=== PATIENT | female | born 1940 ===

== ENCOUNTER 2016-07-23 14:00 | Emergency (ER) | payer MEDICARE ==
[2016-07-23 14:41] VITALS: BP 171/81
--- NOTE | 2016-07-23 15:00 | UC ---
Throat Pain/Nasal James HPI - HPI Summary HPI Summary: 3-4 days ago started feeling like R ear was full, congested, then throat started hurting and has been getting worse. R>L. Denies fever, nasal congestion , or cough. Was around teenaged granddaughter 1 week ago who developed "tonsillitis." - History of Current Complaint Chief Complaint: UCRespiratory Stated Complaint: SORE THROAT,RT EAR PAIN Time Seen by Provider: 07/23/16 14:42 Hx Obtained From: Patient ?: No Onset/Duration: Gradual Onset, Lasting Days Severity: Moderate Cough: None Associated Signs & Symptoms: Negative: Hoarseness, Sinus Discomfort, Fever, Vomiting, Rash - Allergies/Home Medications Allergies/Adverse Reactions: Allergies Allergy/AdvReac Type Severity Reaction Status Date / Time No Known Allergies Allergy Verified 07/23/16 14:41 Home Medications: Home Medications Aspirin [Kathryn Aspirin] 325 mg PO 07/23/16 [History] PMH/Surg Hx/FS Hx/Imm Hx Endocrine History Of: Denies: Diabetes, Thyroid Disease Cardiovascular History Of: Denies: Cardiac Disorders, Hypertension Respiratory History Of: Denies: COPD, Asthma GI/ History Of: Denies: Ulcer - Surgical History Surgical History: Yes Surgery Procedure, Year, and Place: ovarian cysts removed - Family History Known Family History: Positive: Hypertension - Social History Occupation: Retired Lives: With Family Alcohol Use: Daily Substance Use Type: None Smoking Status (MU): Never Smoked Tobacco Review of Systems Constitutional: Negative Skin: Negative Eyes: Negative ENT: Sore Throat, Ear Ache Respiratory: Negative Cardiovascular: Negative Gastrointestinal: Negative Genitourinary: Negative Motor: Negative Neurovascular: Negative Musculoskeletal: Negative Neurological: Negative Psychological: Negative All Other Systems Reviewed And Are Negative: Yes Physical Exam Triage Information Reviewed: Yes Appearance: Well-Appearing, No Pain Distress, Well-Nourished Vital Signs: Initial Vital Signs Temp 98.3 F 07/23/16 14:37 Pulse 100 07/23/16 14:37 Resp 18 07/23/16 14:37 BP 171/81 07/23/16 14:37 Pulse Ox 97 07/23/16 14:37 Vital Signs Reviewed: Yes Eye Exam: Normal Eyes: Positive: Conjunctiva Clear ENT: Positive: Pharyngeal erythema - R>L, TM dull - R TM retracted, effusion, no erythema. Negative: Hearing grossly normal - using hearing aides, Nasal congestion, Nasal drainage, TM bulging, TM red Dental Exam: Normal Neck exam: Normal Neck: Positive: Supple, Nontender, No Lymphadenopathy Respiratory Exam: Normal Respiratory: Positive: Chest non-tender, Lungs clear, Normal breath sounds, No respiratory distress, No accessory muscle use Cardiovascular Exam: Normal Cardiovascular: Positive: RRR, No Murmur Musculoskeletal Exam: Normal Neurological Exam: Normal Psychological Exam: Normal Skin Exam: Normal Throat Pain/Nasal Course/Dx - Differential Dx/Diagnosis Provider Diagnoses: pharyngitis. R ear serous otitis Discharge - Discharge Plan Condition: Stable Disposition: HOME Patient Education Materials: Serous Otitis Media (ED), Pharyngitis (ED) Referrals: Yari Giles MD [Primary Care Provider] - Additional Instructions: Rapid strep negative. I expect your throat symptoms to be resolved within a week or so. It can take 3-4 weeks for the fluid in ears to drain. If you have any sudden or severe worsening, please return here or see your primary care provider.
== END 2016-07-23 15:36 | disposition home or self-care (01) ==
LOC: UCEAST 14:00
DX: H65.91 Unspecified nonsuppurative otitis media, right ear (principal); J02.9 Acute pharyngitis, unspecified
CPT/HCPCS: 87651; 99211; G0463